=== PATIENT | female | born 1965 | race Hispanic/Latino ===

== ENCOUNTER 2025-08-29 13:09 | Emergency (ER) | payer SELFPAY ==
[2025-08-29] MEDS ORDERED: Ketorolac Tromethamine 30 MG (1 mL) VIAL ONE (14:16)
[2025-08-29] MEDS ORDERED: Aspirin Chewable 81 MG TAB ONE (14:16)
[2025-08-29] MEDS ORDERED: Orphenadrine Citrate 60 MG/2 ML VIAL ONE (14:16)
[2025-08-29 14:19] LABS: Hematocrit 40.1 % (36.0-47.0); Hemoglobin 14.9 g/dL (12.0-16.0); Mean Corpuscular Hemoglobin 32.0 pg (27.0-31.0); Mean Corpuscular Volume 86.0 fl (78.0-98.0); Platelet Count 188 10x3/uL (130-400); Red Blood Cell (RBC) Count 4.67 mill/uL (4.20-5.40); White Blood Cell (WBC) Count 7.5 10x3/uL (4.8-10.8)
[2025-08-29 14:32] LABS: ALT (SGPT) 70 U/L (Less than 34); AST (SGOT) 82 U/L (11-34); Albumin 3.5 g/dL (3.1-4.5); Alkaline Phosphatase 238 U/L (40-110); Anion Gap 14 mmol/L (10-20); BUN (Urea Nitrogen) 16 mg/dL (9.8-20.1); Bilirubin, Total 0.9 mg/dL (0.3-1.2); Calc. Creatinine Clearance 0 mL/min (70-130); Calcium 8.7 mg/dL (7.8-10.44); Carbon Dioxide 24 mmol/L (22-29); Chloride 103 mmol/L (98-107); Globulin 4.8 g/dL (2.4-3.5); Glucose 347 mg/dL (70-105); Magnesium 1.8 mg/dL (1.6-2.6); Potassium 4.3 mmol/L (3.5-5.1); Sodium 137 mmol/L (136-145); Troponin I Less than 0.010 ng/mL (< 0.028)
[2025-08-29 14:46] LABS: MDiff Complete? YES
== END 2025-08-29 16:38 | disposition home or self-care (01) ==
LOC: BURERS 13:09
DX: S29.011A Strain of muscle and tendon of front wall of thorax, initial encounter (principal); R09.1 Pleurisy; R74.8 Abnormal levels of other serum enzymes; I10 Essential (primary) hypertension; E11.9 Type 2 diabetes mellitus without complications; Z79.84 Long term (current) use of oral hypoglycemic drugs; Z79.899 Other long term (current) drug therapy; X58.XXXA Exposure to other specified factors, initial encounter
CPT/HCPCS: 36415; 71046; 80053; 83735; 83880; 84484; 85025; 85379; 93005; 96374; 96375; J1885; J2360